=== PATIENT | male | born 1985 | race African-American/Black ===

== ENCOUNTER 2017-07-22 11:12 | Emergency (ER) | payer SELFPAY ==
[2017-07-22 11:21] VITALS: TEMP 98.5; BMI 28.1
[2017-07-22] MEDS ORDERED: morphine CARPU-JECT 4 MG/1 ML DISP.SYRIN IVPUSH ONE (11:26)
[2017-07-22] MEDS ORDERED: morphine CARPU-JECT 10 MG/1 ML DISP.SYRIN ONE (11:28)
--- NOTE | 2017-07-22 11:30 | PDOC ---
History of Present Illness - General Chief Complaint: Pain Stated Complaint: TESTICULAR PAIN Time Seen by Provider: 07/22/17 11:22 History Source: Patient - History of Present Illness Timing/Duration: reports: constant, getting worse Past History - Past Medical History Allergies/Adverse Reactions: Allergies Allergy/AdvReac Type Severity Reaction Status Date / Time No Known Allergies Allergy Verified 07/22/17 11:22 Home Medications: Ambulatory Orders NK [No Known Home Medication] 07/22/17 COPD: No - Suicide/Smoking/Psychosocial Hx Smoking History: Current some day smoker Have you smoked in the past 12 months: Yes Number of Cigarettes Smoked Daily: 3 Information on smoking cessation initiated: No Hx Alcohol Use: No Drug/Substance Use Hx: No Substance Use Type: None Review of Systems - Review of Systems Constitutional: No: Chills, Fever : Yes: Testicular Swelling, Testicular Pain. No: Dysuria, Discharge, Hematuria *Physical Exam - Vital Signs Last Vital Signs Temp Pulse Resp BP Pulse Ox 98.5 F 72 18 105/63 100 07/22/17 11:19 07/22/17 11:19 07/22/17 11:19 07/22/17 11:19 07/22/17 11:19 - Physical Exam General Appearance: Yes: Appropriately Dressed, Moderate Distress HEENT: positive: Normal Voice Respiratory/Chest: negative: Respiratory Distress Gastrointestinal/Abdominal: positive: Soft. negative: Tender Male Genitalia: positive: other (possible high riding L testes w/ diffuse ttp, no improvement w/ elevation of testes, no specific transverse lie, cremasteric reflex intact b/l) Integumentary: positive: Dry, Warm Neurologic: positive: Fully Oriented, Alert, Normal Mood/Affect ED Treatment Course - RADIOLOGY Radiology Studies Ordered: Category Date Time Status SCROTUM AND CONTENTS US [US] Stat Ultrasound 07/22/17 11:26 Ordered Medical Decision Making - Medical Decision Making 07/22/17 11:27 32-year-old male, no significant history here with severe pain to left testes, status post injury yesterday. Patient states while at work, a 30 gallon container with ice at the bottom "ricocheted" and hit him in the groin. States pain worsened this a.m. No nausea, vomiting. Denies urethral discharge, dysuria , f/c See exam R/o torsion -pain control -US 07/22/17 12:52 No torsion, hematoma or e/o infxn on US as per discussion w/ radiology. Patient well-appearing with resolution of pain per pt. Will send UA and STD cultures though very low suspicion for infxn given hx. Anticipate discharge with pain medication *DC/Admit/Observation/Transfer Diagnosis at time of Disposition: Testicular pain - Discharge Dispostion Disposition: HOME Condition at time of disposition: Improved - Referrals - Patient Instructions Printed Discharge Instructions: Contusion Additional Instructions: Your ultrasound did not show any evidence of testicular torsion or any other acute pathology. Take 800 mg of Motrin every 6 hours as needed for pain and return for worsening of symptoms - Post Discharge Activity
[2017-07-22] MEDS ORDERED: IBUPROFEN 400 MG TABLET (FP) PO ONE ×2 (12:52→13:08)
--- NOTE | 2017-07-22 13:43 | PDOC ---
*Physical Exam - Vital Signs Last Vital Signs Temp Pulse Resp BP Pulse Ox 98.5 F 72 18 105/63 100 07/22/17 11:19 07/22/17 11:19 07/22/17 11:19 07/22/17 11:19 07/22/17 11:19 ED Treatment Course - Medications Given in the ED: ED Medications Discontinued Medications Generic Name Dose Route Start Last Admin Trade Name Leola PRN Reason Stop Dose Admin Ibuprofen 800 mg 07/22/17 12:52 07/22/17 13:19 Motrin - PO 07/22/17 12:53 800 mg ONCE ONE Administration Morphine Sulfate 4 mg 07/22/17 11:26 07/22/17 11:36 Morphine Injection - IVPUSH 07/22/17 11:27 4 mg ONCE ONE Administration Medical Decision Making - Medical Decision Making The patient was seen and evaluated in conjunction with KARLA Acosta under my direct supervision, ancillary studies were reviewed. I agree with the plan as outlined by KARLA Acosta . *DC/Admit/Observation/Transfer Diagnosis at time of Disposition: Testicular pain - Discharge Dispostion Disposition: HOME Condition at time of disposition: Improved - Referrals - Patient Instructions Printed Discharge Instructions: Contusion Additional Instructions: Your ultrasound did not show any evidence of testicular torsion or any other acute pathology. Take 800 mg of Motrin every 6 hours as needed for pain and return for worsening of symptoms - Post Discharge Activity Forms/Work/School Notes: Back to Work
[2017-07-22 14:00] LABS: URINE APPEARANCE SLCLOUDY; URINE BILIRUBIN NEGATIVE (NEGATIVE); URINE BLOOD 1+ (NEGATIVE); URINE COLOR LTYELLOW; URINE GLUCOSE (UA) NEGATIVE (NEGATIVE); URINE KETONE NEGATIVE (NEGATIVE); URINE NITRITE NEGATIVE (NEGATIVE); URINE UROBILINOGEN NEGATIVE mg/dL (0.2-1.0)
[2017-07-22 14:05] LABS: URINE LEUK ESTERASE 3+ (NEGATIVE); URINE PROTEIN 2+ (NEGATIVE)
[2017-07-22 14:06] VITALS: BP 122/68; PULSE 68
[2017-07-22 14:08] LABS: EPI CELLS RARE /HPF (FEW); URINE HYALINE CAST 1 /lpf; URINE MUCUS RARE
--- NOTE | 2017-07-26 14:21 | PDOC ---
Patient Follow-up (Call Back) - Post ED Follow - Up Condition at time of discharge: Improved Disposition at time of original discharge: HOME Reason for Call Back: Abnwl. Microbiology (Patient's urine shows positive for Chlamydia. Urine analysis shows 3+ leukocytes and 133 white cells. Patient be treated with doxycycline and coverage for epididymitis. Call patient at home and is aware he needs to go to [facility] to start medication today.)
== END 2017-07-22 14:00 | disposition home or self-care (01) ==
LOC: JER 11:12
PROC: 3E033NZ Introduction of Analgesics, Hypnotics, Sedatives into Peripheral Vein, Percutaneous Approach (ICD-10-PCS; principal; 2017-07-22)
DX: S39.848A Other specified injuries of external genitals, initial encounter (principal); W20.8XXA Other cause of strike by thrown, projected or falling object, initial encounter; Y93.H9 Activity, other involving exterior property and land maintenance, building and construction; Y92.89 Other specified places as the place of occurrence of the external cause; Y99.0 Civilian activity done for income or pay
CPT/HCPCS: 36415; 76870-TC; 81003; 81015; 87491; 87591; 99282-25